=== PATIENT | female | born 2000 | race Caucasian/White ===

== ENCOUNTER 2021-08-18 08:45 | Emergency (ER) | payer OTHER ==
[~2021-08-18 08:45] MED LIST: VISTARIL50 MG PO
== END 2021-08-18 11:05 | disposition home or self-care (01) ==
LOC: FER 08:45
DX: R51.9 Headache, unspecified (principal); Z88.0 Allergy status to penicillin; Z88.8 Allergy status to other drugs, medicaments and biological substances
CPT/HCPCS: 70450